=== PATIENT | female | born 1950 | race Caucasian/White ===

== ENCOUNTER 2016-12-19 09:48 | Emergency (ER) | payer OTHER, MEDICARE ==
[2016-12-19] MEDS ORDERED: ALTACE5 M4 PO (10:01)
[2016-12-19] MEDS ORDERED: ESTRING1 EACH VG (10:02)
[2016-12-19] MEDS ORDERED: SINGULAIR10 M1 PO (10:02)
[2016-12-19] MEDS ORDERED: BUPROPION XL300 M1 PO (10:03)
[2016-12-19] MEDS ORDERED: LIPITOR40 M1 PO (10:03)
[2016-12-19] MEDS ORDERED: ZYRTEC-D TABLE1 EAC1 PO (10:46)
[2016-12-19] MEDS ORDERED: ALLEGRA ALLERG180 M1 PO (10:47)
[2016-12-19] MEDS ORDERED: ALPRAZOLAM0.25 M3 PO (10:48)
[2016-12-19] MEDS ORDERED: CENTRUM COMPLE1 EAC1 PO (10:48)
[2016-12-19] MEDS ORDERED: VITAMIN D32000 UNI2 PO (10:49)
[2016-12-19] MEDS ORDERED: OSTEO BI-FLEX1 EAC5 PO (10:49)
[2016-12-19] MEDS ORDERED: ASPIRIN EC81 MG PO (10:49)
== END 2016-12-19 12:40 ==
LOC: EDMED 09:48
DX: I10 Essential (primary) hypertension (principal); R00.2 Palpitations; F41.9 Anxiety disorder, unspecified; F32.9 Major depressive disorder, single episode, unspecified